=== PATIENT | female | born 2000 | race African-American/Black ===

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

== ENCOUNTER 2021-05-07 21:03 | Emergency (ER) | payer SELFPAY ==
[2021-05-07] MEDS ORDERED: Acetaminophen 500 MG TAB ONE (22:42)
== END 2021-05-07 21:56 | disposition home or self-care (01) ==
LOC: ERS 21:03
DX: R25.2 Cramp and spasm (principal); R03.0 Elevated blood-pressure reading, without diagnosis of hypertension
CPT/HCPCS: 99283

== ENCOUNTER 2021-05-23 00:14 | Emergency (ER) | payer OTHER, SELFPAY ==
[2021-05-23] MEDS ORDERED: Bacitracin 1 PK ONE (01:18)
[2021-05-23] MEDS ORDERED: Boostrix 0.5 ML (Tdap) VIAL ONE (01:18)
== END 2021-05-23 01:50 | disposition home or self-care (01) ==
LOC: ERS 00:14
DX: S90.811A Abrasion, right foot, initial encounter (principal); W01.0XXA Fall on same level from slipping, tripping and stumbling without subsequent striking against object, initial encounter
CPT/HCPCS: 90471; 90715

== ENCOUNTER 2021-08-22 05:50 | Emergency (ER) | payer SELFPAY ==
[2021-08-22] MEDS ORDERED: Ondansetron PF 4 MG/2 ML Vial ONE (06:42)
[2021-08-22] MEDS ORDERED: Ketorolac Tromethamine 30 MG/ML VIAL ONE (06:42)
[2021-08-22] MEDS ORDERED: Ondansetron ODT 4 MG TAB ONE (06:43)
[2021-08-22 12:58] LABS: SARS-CoV-2 PCR by NAA Not Detected (NotDetected)
== END 2021-08-22 12:20 | disposition home or self-care (01) ==
LOC: ERS 05:50
DX: R11.2 Nausea with vomiting, unspecified (principal); R19.7 Diarrhea, unspecified; F17.210 Nicotine dependence, cigarettes, uncomplicated; Z20.822 Contact with and (suspected) exposure to COVID-19
CPT/HCPCS: 96372; 99284; J0500; J1885; J2405; Q0162; U0003; U0005

== ENCOUNTER 2022-05-24 05:27 | Emergency (ER) | payer SELFPAY ==
[2022-05-24] MEDS ORDERED: Dicyclomine 20 MG/2 ML VIAL ONE (05:50)
[2022-05-24] MEDS ORDERED: Ondansetron ODT 4 MG TAB ONE (05:50)
== END 2022-05-24 07:03 | disposition home or self-care (01) ==
LOC: ERS 05:27
DX: A05.9 Bacterial foodborne intoxication, unspecified (principal); F17.210 Nicotine dependence, cigarettes, uncomplicated
CPT/HCPCS: 96372; 99283; J0500; Q0162

== ENCOUNTER 2022-08-10 07:48 | Emergency (ER) | payer SELFPAY ==
[2022-08-10] MEDS ORDERED: HYDROcodone/Acetaminophen 10/325 mg Tablet ONE (20:59)
[2022-08-10] MEDS ORDERED: Morphine 4 MG/ML VIAL ONE (21:49)
== END 2022-08-10 10:02 | disposition home or self-care (01) ==
LOC: ERS 07:48
DX: S06.9X9A Unspecified intracranial injury with loss of consciousness of unspecified duration, initial encounter (principal); F17.210 Nicotine dependence, cigarettes, uncomplicated; Y04.8XXA Assault by other bodily force, initial encounter
CPT/HCPCS: 70450; 72125; J2270

== ENCOUNTER 2022-08-10 20:20 | Emergency (ER) | payer SELFPAY ==
[2022-08-10] MEDS ORDERED: HYDROcodone/Acetaminophen 10/325 mg Tablet ONE (21:00)
== END 2022-08-10 22:39 | disposition home or self-care (01) ==
LOC: ERS 20:20
DX: R51.9 Headache, unspecified (principal); F17.210 Nicotine dependence, cigarettes, uncomplicated; Y04.8XXA Assault by other bodily force, initial encounter
CPT/HCPCS: 70486; 96374

== ENCOUNTER 2022-09-24 03:17 | Emergency (ER) | payer SELFPAY ==
[2022-09-24] MEDS ORDERED: Ibuprofen 800 MG TAB ONE (03:47)
== END 2022-09-24 04:12 | disposition home or self-care (01) ==
LOC: ERS 03:17
DX: M62.830 Muscle spasm of back (principal)
CPT/HCPCS: 99283

== ENCOUNTER 2022-10-06 09:11 | Emergency (ER) | payer SELFPAY ==
[2022-10-06 09:56] LABS: Bacteria/HPF None Seen HPF (None Seen); Bilirubin Negative (Negative); Blood, Urine 3+ (Negative); Clarity Turbid (Clear); Glucose, Urine (Dipstick) Normal (Negative); Ketone, Urine Negative (Negative); Leukocyte 75 Leu/uL (Negative); Nitrite Negative (Negative); Protein, Urine (Dipstick) 10 mg/dL (Neg-Trace); RBC/HPF Greater than 50 HPF (0-3); Specific Gravity, Urine 1.016 (1.002-1.036); Squamous Epithelial 0-3 HPF (0-3); Urobilinogen Normal mg/dL (Less than 2); WBC/HPF 0-3 HPF (0-3); pH, Urine 6.5 (5.0-9.0)
[2022-10-06 09:58] LABS: Pregnancy Test - Urine (BHCG) Negative (Negative); Pregu Control Background? CLEAR/WHITE (CLR/WHITE); Pregu Control Bar Appear? YES (CONTROL BAR); Specific Gravity 1.016 (1.002-1.036)
[2022-10-06] MEDS ORDERED: Acetaminophen 500 MG TAB ONE (10:00)
[2022-10-06] MEDS ORDERED: Ketorolac Tromethamine 30 MG/ML VIAL ONE (10:25)
[2022-10-06 10:45] LABS: #Basophils 0.1 thou/uL (0.0-0.2); #Eosinphils 0.1 thou/uL (0.0-0.7); #Lymphocytes 1.4 thou/uL (1.20-3.40); #Monocytes 0.4 thou/uL (0.11-0.59); #Neutrophils 5.4 thou/uL (1.40-6.50); %Basophils 0.7 % (0.0-1.0); %Eosinophils 1.3 % (0.0-10.0); %Lymphocytes 18.7 % (21.0-51.0); %Neutrophils 73.4 % (42.0-75.0); Mean Corpuscular HGB CONC 31.5 g/dL (32.0-36.0); Mean Corpuscular Hemoglobin 29.3 pg (27.0-31.0); Mean Corpuscular Volume 93.1 fl (78.0-98.0); Mean Platelet Volume 9.3 fL (7.4-10.4); Platelet Count 164 10x3/uL (130-400); RBC Distribution Width 11.8 % (11.5-14.5); Red Blood Cell (RBC) Count 4.79 mill/uL (4.20-5.40); White Blood Cell (WBC) Count 7.4 10x3/uL (4.8-10.8)
[2022-10-06 11:03] LABS: ALT (SGPT) 15 U/L (8-55); AST (SGOT) 13 U/L (5-34); Albumin 4.6 g/dL (3.5-5.0); Alkaline Phosphatase 92 U/L (40-110); Anion Gap 13 mmol/L (10-20); BUN (Urea Nitrogen) 7 mg/dL (7.0-18.7); Bilirubin, Total 0.8 mg/dL (0.2-1.2); Calc. Creatinine Clearance 0 mL/min (70-130); Calcium 9.9 mg/dL (7.8-10.44); Carbon Dioxide 23 mmol/L (22-29); Chloride 109 mmol/L (98-107); Estimated GFR 118; Globulin 3.1 g/dL (2.4-3.5); Glucose 85 mg/dL (70-105); Lipase 10 U/L (8-78); Potassium 4.1 mmol/L (3.5-5.1); Protein, Total 7.7 g/dL (6.0-8.3); Sodium 141 mmol/L (136-145)
== END 2022-10-06 12:09 | disposition home or self-care (01) ==
LOC: ERS 09:11
DX: M54.50 Low back pain, unspecified (principal); I88.0 Nonspecific mesenteric lymphadenitis
CPT/HCPCS: 36415; 74176; 80053; 81003; 81015; 81025; 83690; 85025; 96372; J1885

== ENCOUNTER 2023-01-18 16:26 | Emergency (ER) | payer SELFPAY ==
[2023-01-18 18:15] LABS: Bilirubin Negative (Negative); Blood, Urine 3+ (Negative); Clarity Turbid (Clear); Glucose, Urine (Dipstick) Normal (Negative); Ketone, Urine Negative (Negative); Leukocyte 250 Leu/uL (Negative); Nitrite Negative (Negative); Protein, Urine (Dipstick) 20 mg/dL (Neg-Trace); Specific Gravity, Urine 1.014 (1.002-1.036); Urobilinogen Normal mg/dL (Less than 2); pH, Urine 6.5 (5.0-9.0)
[2023-01-18 18:16] LABS: Bacteria/HPF Rare-Few HPF (None Seen); Pregnancy Test - Urine (BHCG) Negative (Negative); Pregu Control Background? CLEAR/WHITE (CLR/WHITE); Pregu Control Bar Appear? YES (CONTROL BAR); RBC/HPF Greater than 50 HPF (0-3); Specific Gravity 1.014 (1.002-1.036); WBC/HPF 21-50 HPF (0-3)
== END 2023-01-18 18:58 | disposition home or self-care (01) ==
LOC: ERS 16:26
DX: N39.0 Urinary tract infection, site not specified (principal); F17.290 Nicotine dependence, other tobacco product, uncomplicated
CPT/HCPCS: 81003; 81015; 81025; 99283

== ENCOUNTER 2023-05-28 17:14 | Emergency (ER) | payer SELFPAY ==
[2023-05-28] MEDS ORDERED: Cyclobenzaprine 10 MG TAB ONE (18:22)
[2023-05-28] MEDS ORDERED: Ketorolac Tromethamine 30 MG/ML VIAL ONE (18:22)
== END 2023-05-28 18:44 | disposition home or self-care (01) ==
LOC: ERS 17:14
DX: G43.909 Migraine, unspecified, not intractable, without status migrainosus (principal); F17.290 Nicotine dependence, other tobacco product, uncomplicated
CPT/HCPCS: 96372; 99283; J1885

== ENCOUNTER 2023-07-28 21:16 | Emergency (ER) | payer SELFPAY ==
[2023-07-28] MEDS ORDERED: Ondansetron ODT 4 MG TAB ONE (21:39)
[2023-07-28 22:31] LABS: SARS-CoV-2 NAA Rapid Test Not Detected (NotDetected)
== END 2023-07-28 21:45 | disposition home or self-care (01) ==
LOC: ERS 21:16
DX: B34.9 Viral infection, unspecified (principal); F17.290 Nicotine dependence, other tobacco product, uncomplicated; Z20.822 Contact with and (suspected) exposure to COVID-19
CPT/HCPCS: 99283; Q0162

== ENCOUNTER 2023-08-05 14:15 | Emergency (ER) | payer SELFPAY ==
[2023-08-05] MEDS ORDERED: Dicyclomine 20 MG/2 ML VIAL ONE (15:43)
[2023-08-05] MEDS ORDERED: Ondansetron ODT 4 MG TAB ONE (15:43)
[2023-08-05] MEDS ORDERED: Ketorolac Tromethamine 30 MG/ML VIAL ONE (16:52)
[2023-08-05] MEDS ORDERED: Cyclobenzaprine 10 MG TAB ONE (16:52)
== END 2023-08-05 17:00 | disposition home or self-care (01) ==
LOC: ERS 14:15
DX: R11.10 Vomiting, unspecified (principal); M54.50 Low back pain, unspecified; I10 Essential (primary) hypertension; F17.290 Nicotine dependence, other tobacco product, uncomplicated
CPT/HCPCS: 96372; 99284; J1885; Q0162

== ENCOUNTER 2023-09-17 10:35 | Emergency (ER) | payer SELFPAY ==
[2023-09-17 11:15] LABS: #Eosinphils 0.1 thou/uL (0.0-0.7); #Monocytes 0.6 thou/uL (0.11-0.59); #Neutrophils 8.4 thou/uL (1.40-6.50); %Basophils 0.2 % (0.0-1.0); %Eosinophils 1.2 % (0.0-10.0); %Lymphocytes 14.4 % (21.0-51.0); %Monocytes 5.4 % (0.0-10.0); %Neutrophils 78.6 % (42.0-75.0); Hemoglobin 13.4 g/dL (12.0-16.0); Mean Corpuscular HGB CONC 32.7 g/dL (32.0-36.0); Mean Corpuscular Hemoglobin 29.6 pg (27.0-31.0); Mean Corpuscular Volume 90.7 fl (78.0-98.0); Mean Platelet Volume 10.4 fL (7.4-10.4); Platelet Count 206 10x3/uL (130-400); RBC Distribution Width 12.7 % (11.5-14.5); Red Blood Cell (RBC) Count 4.52 mill/uL (4.20-5.40); White Blood Cell (WBC) Count 10.6 10x3/uL (4.8-10.8)
[2023-09-17] MEDS ORDERED: LORazepam 2 MG/ML SYR.(CARPUJECT) ONE (11:27)
[2023-09-17 11:33] LABS: BHCG - Serum Negative (NEGATIVE); Pregs Control Background? CLEAR/WHITE (CLR/WHITE); Pregs Control Bar Appear? YES (CONTROL BAR)
[2023-09-17 11:36] LABS: Acetaminophen 31 mcg/mL (10.0-30.0); Alcohol Less than 10.0 mg/dL (Less than 10); Salicylate Less than 8.0 mg/dL (15.0-30.0)
[2023-09-17 11:37] LABS: ALT (SGPT) 13 U/L (8-55); AST (SGOT) 15 U/L (5-34); Albumin 4.6 g/dL (3.5-5.0); Alkaline Phosphatase 84 U/L (40-110); Anion Gap 14 mmol/L (10-20); BUN (Urea Nitrogen) 7 mg/dL (7.0-18.7); Bilirubin, Total 0.5 mg/dL (0.2-1.2); Calc. Creatinine Clearance 0 mL/min (70-130); Calcium 9.3 mg/dL (7.8-10.44); Carbon Dioxide 21 mmol/L (22-29); Chloride 107 mmol/L (98-107); Estimated GFR 125; Glucose 88 mg/dL (70-105); Potassium 3.6 mmol/L (3.5-5.1); Protein, Total 7.6 g/dL (6.0-8.3); Sodium 138 mmol/L (136-145)
[2023-09-17] MEDS ORDERED: Ketorolac Tromethamine 30 MG/ML VIAL ONE (12:39)
[2023-09-17] MEDS ORDERED: Ondansetron ODT 4 MG TAB ONE ×2 (12:39→13:52)
== END 2023-09-17 15:57 | disposition left against medical advice (07) ==
LOC: ERS 10:35
DX: Z53.29 Procedure and treatment not carried out because of patient's decision for other reasons (principal); I10 Essential (primary) hypertension; F17.290 Nicotine dependence, other tobacco product, uncomplicated
CPT/HCPCS: 36415; 71045; 80053; 80307; 84703; 85025; 93005; 96372; J1885; J2060; Q0162

== ENCOUNTER 2023-09-22 23:16 | Emergency (ER) | payer SELFPAY ==
[2023-09-22] MEDS ORDERED: Sodium Chloride 0.9% 100 ML ONE ×2 (23:22→23:23)
[2023-09-22] MEDS ORDERED: CEFAZOLIN 2 GM VIAL ONE (23:22)
[2023-09-22] MEDS ORDERED: fentaNYL 50 mcg/mL 1 mL Vial ONE (23:22)
[2023-09-22] MEDS ORDERED: Boostrix 0.5 ML (Tdap) VIAL (>/=7 yrs of age) ONE (23:23)
[2023-09-22 23:34] LABS: #Basophils 0.1 thou/uL (0.0-0.2); #Eosinphils 0.2 thou/uL (0.0-0.7); #Monocytes 0.8 thou/uL (0.11-0.59); #Neutrophils 7.2 thou/uL (1.40-6.50); %Basophils 0.5 % (0.0-1.0); %Eosinophils 1.4 % (0.0-10.0); %Monocytes 5.9 % (0.0-10.0); %Neutrophils 55.9 % (42.0-75.0); Hematocrit 39.6 % (36.0-47.0); Hemoglobin 12.8 g/dL (12.0-16.0); Mean Corpuscular HGB CONC 32.3 g/dL (32.0-36.0); Mean Corpuscular Hemoglobin 29.7 pg (27.0-31.0); Mean Corpuscular Volume 91.9 fl (78.0-98.0); Mean Platelet Volume 10.4 fL (7.4-10.4); Platelet Count 270 10x3/uL (130-400); RBC Distribution Width 12.8 % (11.5-14.5); Red Blood Cell (RBC) Count 4.31 mill/uL (4.20-5.40); White Blood Cell (WBC) Count 12.8 10x3/uL (4.8-10.8)
[2023-09-22 23:48] LABS: ALT (SGPT) 15 U/L (8-55); AST (SGOT) 16 U/L (5-34); Albumin 4.8 g/dL (3.5-5.0); Alkaline Phosphatase 82 U/L (40-110); Anion Gap 18 mmol/L (10-20); BUN (Urea Nitrogen) 7 mg/dL (7.0-18.7); Bilirubin, Total 0.5 mg/dL (0.2-1.2); Calc. Creatinine Clearance 0 mL/min (70-130); Calcium 9.6 mg/dL (7.8-10.44); Carbon Dioxide 20 mmol/L (22-29); Chloride 108 mmol/L (98-107); Estimated GFR 94; Globulin 3.3 g/dL (2.4-3.5); Glucose 97 mg/dL (70-105); Potassium 3.5 mmol/L (3.5-5.1); Protein, Total 8.1 g/dL (6.0-8.3); Sodium 142 mmol/L (136-145)
[2023-09-22] MEDS ORDERED: Ketorolac Tromethamine 30 MG/ML VIAL ONE (23:49)
[2023-09-22] MEDS ORDERED: Ondansetron PF 4 MG/2 ML Vial ONE (23:49)
[2023-09-22] MEDS ORDERED: Morphine 4 MG/ML VIAL ONE (23:49)
[2023-09-22 23:50] LABS: BHCG - Serum Negative (NEGATIVE); Pregs Control Background? CLEAR/WHITE (CLR/WHITE); Pregs Control Bar Appear? YES (CONTROL BAR)
[2023-09-22 23:54] LABS: PTT 30.2 sec (22.9-36.1); Prothrombin Time 13.2 sec (12.0-14.7)
[2023-09-23] MEDS ORDERED: Ketorolac Tromethamine 30 MG/ML VIAL ONE (01:08)
[2023-09-23] MEDS ORDERED: HYDROcodone/Acetaminophen 10/325 mg Tablet ONE (01:09)
== END 2023-09-23 02:53 | disposition home or self-care (01) ==
LOC: EEVIPCON 23:16 → ERS 23:16
DX: S41.032A Puncture wound without foreign body of left shoulder, initial encounter (principal); Z23 Encounter for immunization; W34.00XA Accidental discharge from unspecified firearms or gun, initial encounter
CPT/HCPCS: 36415; 70491; 71045; 71260; 83605; 84703; 85610; 85730; 86850; 86900; 86901; 90471; 90715; 96361; 96365; 96375; 96376; G0390; J1885; J2270; J2405; J3010; J3490

== ENCOUNTER 2023-10-14 09:37 | Emergency (ER) | payer SELFPAY ==
[2023-10-14] MEDS ORDERED: Acetaminophen 325 MG TAB ONE (10:27)
[2023-10-14] MEDS ORDERED: Ketorolac Tromethamine 30 MG/ML VIAL ONE (10:27)
== END 2023-10-14 13:44 ==
LOC: ERS 09:37
DX: S56.912A Strain of unspecified muscles, fascia and tendons at forearm level, left arm, initial encounter (principal); I10 Essential (primary) hypertension; F12.10 Cannabis abuse, uncomplicated; M54.2 Cervicalgia; F17.290 Nicotine dependence, other tobacco product, uncomplicated; Y04.0XXA Assault by unarmed brawl or fight, initial encounter
CPT/HCPCS: 71046; 96372; J1885

== ENCOUNTER 2023-12-22 13:32 | Emergency (ER) | payer SELFPAY ==
[2023-12-22 15:13] LABS: #Eosinphils 0.2 thou/uL (0.0-0.7); #Monocytes 0.4 thou/uL (0.11-0.59); #Neutrophils 5.2 thou/uL (1.40-6.50); %Basophils 0.5 % (0.0-1.0); %Eosinophils 2.1 % (0.0-10.0); %Lymphocytes 24.4 % (21.0-51.0); %Monocytes 4.9 % (0.0-10.0); %Neutrophils 67.8 % (42.0-75.0); Hemoglobin 12.8 g/dL (12.0-16.0); Mean Corpuscular HGB CONC 32.8 g/dL (32.0-36.0); Mean Corpuscular Hemoglobin 29.8 pg (27.0-31.0); Mean Corpuscular Volume 90.9 fl (78.0-98.0); Mean Platelet Volume 11.1 fL (7.4-10.4); Platelet Count 187 10x3/uL (130-400); RBC Distribution Width 12.3 % (11.5-14.5); Red Blood Cell (RBC) Count 4.29 mill/uL (4.20-5.40); White Blood Cell (WBC) Count 7.7 10x3/uL (4.8-10.8)
[2023-12-22] MEDS ORDERED: Metoclopramide HCl 10 MG (2 mL) VIAL ONE (15:15)
[2023-12-22] MEDS ORDERED: diphenhydrAMINE 50 MG/ML VIAL ONE (15:15)
[2023-12-22 17:23] LABS: Albumin 4.1 g/dL (3.5-5.0); Calcium 8.7 mg/dL (7.8-10.44); Chloride 109 mmol/L (98-107); Globulin 2.6 g/dL (2.4-3.5); Glucose 91 mg/dL (70-105); Potassium 3.2 mmol/L (3.5-5.1); Protein, Total 6.7 g/dL (6.0-8.3); Sodium 139 mmol/L (136-145)
[2023-12-22 17:24] LABS: Anion Gap 10 mmol/L (10-20); Bilirubin, Total 0.4 mg/dL (0.2-1.2); Carbon Dioxide 23 mmol/L (22-29)
[2023-12-22 17:25] LABS: Alkaline Phosphatase 65 U/L (40-110)
[2023-12-22 17:26] LABS: Calc. Creatinine Clearance 0 mL/min (70-130); Estimated GFR 127
[2023-12-22 17:27] LABS: BUN (Urea Nitrogen) 7 mg/dL (7.0-18.7)
[2023-12-22 17:28] LABS: AST (SGOT) 16 U/L (5-34)
[2023-12-22 17:29] LABS: ALT (SGPT) 13 U/L (8-55)
== END 2023-12-22 16:39 | disposition home or self-care (01) ==
LOC: ERS 13:32
DX: R51.9 Headache, unspecified (principal); M54.2 Cervicalgia
CPT/HCPCS: 36415; 71045; 72040; 80053; 85025; 96365; 96375; J1200; J2765

== ENCOUNTER 2024-10-11 16:29 | Outpatient (CLI) | payer OTHER | END 2024-10-11 16:30 | disposition home or self-care (01) | LOC: RAD 16:29 | DX: M54.2 Cervicalgia (principal) | CPT/HCPCS: 70360; 72040 ==